=== PATIENT | male | born 1955 | race Caucasian/White ===

== ENCOUNTER 2018-11-27 16:15 | Emergency (ER) | payer BC ==
[~2018-11-27] VITALS: Ht 193 cm; Wt 157.2 kg
[2018-11-27 16:46] LABS: BASO # 0.1 x10^3/uL (0.0-0.2); BASO % 1 % (0-3); EOS # 0.2 x10^3/uL (0.0-0.7); EOS % 3 % (0-3); HEMOGLOBIN 14.7 g/dL (13.0-17.5); LYMPH # 2.5 x10^3/uL (1.0-4.8); LYMPH % 38 % (24-48); MEAN CORPUSCULAR HEMOGLOBIN 31 pg (25-35); MEAN CORPUSCULAR HGB CONC 34 g/dL (31-37); MEAN CORPUSCULAR VOLUME 93 fL (79-100); MONO # 0.7 x10^3/uL (0.0-1.1); MONO % 10 % (0-9); NEUT # 3.1 x10^3uL (1.8-7.7); NEUT % 47 % (31-73); PLATELET COUNT 233 x10^3/uL (140-400); RED BLOOD COUNT 4.73 x10^6/uL (4.30-5.70); RED CELL DISTRIBUTION WIDTH 13.4 % (11.5-14.5); WHITE BLOOD COUNT 6.4 x10^3/uL (4.0-11.0)
[2018-11-27 16:55] LABS: CALCIUM 9.8 mg/dL (8.5-10.1); CREATININE 1.1 mg/dL (0.7-1.3); GFR 67.8; POTASSIUM 4.1 mmol/L (3.5-5.1)
[2018-11-27 17:02] LABS: ALBUMIN 4.2 g/dL (3.4-5.0); ALBUMIN/GLOBULIN RATIO 1.1 (1.0-1.7); MAGNESIUM 2.2 mg/dL (1.8-2.4); TOTAL BILIRUBIN 0.9 mg/dL (0.2-1.0)
--- NOTE | 2018-11-27 17:02 | RAD ---
CT HEAD WO CONTRAST Indication: near-syncope NO PREV Exposure: One or more of the following individualized dose reduction techniques were utilized for this examination: 1. Automated exposure control 2. Adjustment of the mA and/or kV according to patient size 3. Use of iterative reconstruction technique. Technique: Standard imaging without intravenous contrast. Posterior fossa is unremarkable. No evidence of acute intracranial hemorrhage, mass effect, midline shift or abnormal extra-axial fluid collection. Ventricles and sulci are symmetric. Voss-white matter distinction is intact. Orbits appear symmetric. No large scalp swelling region. Partially visualized sinuses are clear. No evidence of acute skull abnormality. Intracranial arterial calcifications. IMPRESSION: No evidence of acute intracranial hemorrhage or mass effect. Electronically signed by: Enmanuel Pandya MD (11/27/2018 4:59 PM) [facility]
--- NOTE | 2018-11-27 17:24 | RAD ---
CHEST PA LATERAL Technique: PA and lateral views of the chest were obtained. Clinical History: NEAR SYNCOPE Comparison: None. Findings: The heart and pulmonary vasculature appear within normal limits. The lungs are clear. The pleural margins are clear. Impression: No acute chest process is seen. Electronically signed by: Kris Rinaldi III, MD (11/27/2018 5:21 PM) [facility]
--- NOTE | 2018-11-27 17:46 | PHYS DOC ---
Past Medical History Past Medical History: GERD, Hypertension, Other Additional Past Medical Histor: "small" AAA Past Surgical History: Other Additional Past Surgical Histo: L rotator cuff Alcohol Use: None Drug Use: None Adult General Chief Complaint Chief Complaint: NEURO SYMPTOMS/DEFICITS [facility] Patient is a 63 year old male who presents with complaining of balance problem and headache. Patient complaining of sudden onset of occipital headache at 1300 while he was working outside with dizziness and problem with his balance and tending to the right side that last about 30 minutes and resolved spontaneously. Patient states he was able to finish his work but is still feeling pressure headache in the occipital area and rated his pain as a mild pain. Patient denies focal neuro deficit, fever and chills, chest pain, dehydration, history of the same problem. Review of Systems Review of Systems Constitutional: Denies fever or chills [] Eyes: Denies change in visual acuity, redness, or eye pain [] HENT: Denies nasal congestion or sore throat [] Respiratory: Denies cough or shortness of breath [] Cardiovascular: No additional information not addressed in HPI [] GI: Denies abdominal pain, nausea, vomiting, bloody stools or diarrhea [] : Denies dysuria or hematuria [] Musculoskeletal: Denies back pain or joint pain [] Integument: Denies rash or skin lesions [] Neurologic: Reports headache, denies focal weakness or sensory changes [] Endocrine: Denies polyuria or polydipsia [] All other systems were reviewed and found to be within normal limits, except as documented in this note. Allergies Allergies Allergies Coded Allergies Type Severity Reaction Last Updated Verified No Known Drug Allergies 11/27/18 No Physical Exam Physical Exam Constitutional: Well developed, well nourished, no acute distress, non-toxic appearance. [] HENT: Normocephalic, atraumatic, bilateral external ears normal, oropharynx moist, no oral exudates, nose normal. [] Eyes: PERRLA, EOMI, conjunctiva normal, no discharge. [] Neck: Normal range of motion, no tenderness, supple, no stridor. [] Cardiovascular:Heart rate regular rhythm, no murmur [] Lungs & Thorax: Bilateral breath sounds clear to auscultation [] Abdomen: Bowel sounds normal, soft, no tenderness, no masses, no pulsatile masses. [] Skin: Warm, dry, no erythema, no rash. [] Back: No tenderness, no CVA tenderness. [] Extremities: No tenderness, no cyanosis, no clubbing, ROM intact, no edema. [] Neurologic: Alert and oriented X 3, normal motor function, normal sensory function, no focal deficits noted. [] Psychologic: Affect normal, judgement normal, mood normal. [] Current Patient Data Vital Signs Vital Signs Date Time Temp Pulse Resp B/P (MAP) Pulse Ox O2 Delivery O2 Flow Rate FiO2 11/27/18 16:20 98.8 66 18 170/81 (110) 99 Room Air 98.8 Lab Values Laboratory Tests Test 11/27/18 16:31 11/27/18 16:34 Glucose (Fingerstick) 87 mg/dL (70-99) White Blood Count 6.4 x10^3/uL (4.0-11.0) Red Blood Count 4.73 x10^6/uL (4.30-5.70) Hemoglobin 14.7 g/dL (13.0-17.5) Hematocrit 44.0 % (39.0-53.0) Mean Corpuscular Volume 93 fL (79-100) Mean Corpuscular Hemoglobin 31 pg (25-35) Mean Corpuscular Hemoglobin Concent 34 g/dL (31-37) Red Cell Distribution Width 13.4 % (11.5-14.5) Platelet Count 233 x10^3/uL (140-400) Neutrophils (%) (Auto) 47 % (31-73) Lymphocytes (%) (Auto) 38 % (24-48) Monocytes (%) (Auto) 10 % (0-9) H Eosinophils (%) (Auto) 3 % (0-3) Basophils (%) (Auto) 1 % (0-3) Neutrophils # (Auto) 3.1 x10^3uL (1.8-7.7) Lymphocytes # (Auto) 2.5 x10^3/uL (1.0-4.8) Monocytes # (Auto) 0.7 x10^3/uL (0.0-1.1) Eosinophils # (Auto) 0.2 x10^3/uL (0.0-0.7) Basophils # (Auto) 0.1 x10^3/uL (0.0-0.2) Sodium Level 136 mmol/L (136-145) Potassium Level 4.1 mmol/L (3.5-5.1) Chloride Level 100 mmol/L (98-107) Carbon Dioxide Level 30 mmol/L (21-32) Anion Gap 6 (6-14) Blood Urea Nitrogen 17 mg/dL (8-26) Creatinine 1.1 mg/dL (0.7-1.3) Estimated GFR (Cockcroft-Gault) 67.8 BUN/Creatinine Ratio 15 (6-20) Glucose Level 108 mg/dL (70-99) H Calcium Level 9.8 mg/dL (8.5-10.1) Magnesium Level 2.2 mg/dL (1.8-2.4) Total Bilirubin 0.9 mg/dL (0.2-1.0) Aspartate Amino Transferase (AST) 26 U/L (15-37) Alanine Aminotransferase (ALT) 39 U/L (16-63) Alkaline Phosphatase 71 U/L (46-116) Creatine Kinase 104 U/L (39-308) Troponin I Quantitative < 0.017 ng/mL (0.000-0.055) PT-Utv-X-Type Natriuretic Peptide 100 pg/mL (0-124) Total Protein 8.0 g/dL (6.4-8.2) Albumin 4.2 g/dL (3.4-5.0) Albumin/Globulin Ratio 1.1 (1.0-1.7) Laboratory Tests 11/27/18 16:34 Laboratory Tests 11/27/18 16:34 EKG EKG EKG Interpreted by me. EKG at 1633 showed normal sinus rhythm at rate of 61, normal MD and QT intervals, no acute ST-T wave abnormalities. Radiology/Procedures Radiology/Procedures [facility] [address] [place], [place] [id number] IMAGING REPORT Signed PATIENT: ENMANUEL POSADA ACCOUNT: [id number] : 1955 LOCATION: ER AGE: 63 SEX: M EXAM STATUS: REG ER ORD. PHYSICIAN: RIGO ROBINS MD REASON: near-syncope PROCEDURE: CHEST PA & LATERAL CHEST PA LATERAL Technique: PA and lateral views of the chest were obtained. Clinical History: NEAR SYNCOPE Comparison: None. Findings: The heart and pulmonary vasculature appear within normal limits. The lungs are clear. The pleural margins are clear. Impression: No acute chest process is seen. Electronically signed by: Sabina Lin III, MD (11/27/2018 5:21 PM) [facility] DICTATED and SIGNED BY: SABINA LIN III, MD DATE: 11/27/18 1721 [facility] [address] [place] [address] IMAGING REPORT Signed PATIENT: ENMANUEL POSADA ACCOUNT: [id number] : 1955 LOCATION: ER AGE: 63 SEX: M EXAM STATUS: PRE ER ORD. PHYSICIAN: RIGO ROBINS MD REASON: near-syncope PROCEDURE: CT HEAD WO CONTRAST CT HEAD WO CONTRAST Indication: near-syncope NO PREV Exposure: One or more of the following individualized dose reduction techniques were utilized for this examination: 1. Automated exposure control 2. Adjustment of the mA and/or kV according to patient size 3. Use of iterative reconstruction technique. Technique: Standard imaging without intravenous contrast. Posterior fossa is unremarkable. No evidence of acute intracranial hemorrhage, mass effect, midline shift or abnormal extra-axial fluid collection. Ventricles and sulci are symmetric. Voss-white matter distinction is intact. Orbits appear symmetric. No large scalp swelling region. Partially visualized sinuses are clear. No evidence of acute skull abnormality. Intracranial arterial calcifications. IMPRESSION: No evidence of acute intracranial hemorrhage or mass effect. Electronically signed by: Enmanuel Pandya MD (11/27/2018 4:59 PM) [facility] DICTATED and SIGNED BY: ENMANUEL PANDYA MD DATE: 11/27/18 1474 Course & Med Decision Making Course & Med Decision Making Pertinent Labs and Imaging studies reviewed. (See chart for details) Evaluation of patient in ER showed 63-year-old male patient with complaining of one of problem with his balance that resolved after 30 minutes and total headache. Patient had unremarkable neuro exam and labs and CT head and chest x- ray and EKG. Patient updated without problem. Patient felt dizziness during CT with change of the position of his head. Plan discharge patient home to diagnose of benign vertigo. Dragon Disclaimer Dragon Disclaimer This electronic medical record was generated, in whole or in part, using a voice recognition dictation system. Departure Departure Impression: Primary Impression: Balance problem Additional Impression: Dizziness Disposition: HOME, SELF-CARE (At 1748) Condition: IMPROVED Referrals: VALE MORROW DO (PCP) Patient Instructions: Benign Positional Vertigo Additional Instructions: Drink plenty liquid Follow up with your physician in 3-4 days Return to ER if not getting better Scripts Meclizine Hcl (MECLIZINE HCL) 25 Mg Tablet 1 TAB PO TID for dizziness, #20 TAB Prov: RIGO ROBINS MD 11/27/18 Problem Qualifiers RIGO ROBINS MD Nov 27, 2018 17:46
[2018-11-27] MEDS ORDERED: MECL25TA3 PO (17:50)
[2018-11-27 18:00] VITALS: BP 152/78
--- NOTE | 2018-11-28 07:30 | EKG ---
[facility] [address] [place] [address] Test Date: 2018-11-27 Test Time: 16:33:58 Pat Name: THAO POSADA Department: Room: Gender: M Communications Intern: : 1955 Requested By: RIGO ROBINS Order Number: [id number] Reading MD: Bo Natarajan Measurements Intervals [place] Rate: 61 P: 29 [place]: 172 QRS: 31 QRSD: 102 T: 16 QT: 406 QTc: 414 Interpretive Statements SINUS RHYTHM NORMAL ECG No previous ECG available for comparison Electronically Signed On 12-03-2018 11:56:32 CDT by Bo Natarajan
== END 2018-11-27 18:10 | disposition home or self-care (01) ==
LOC: ER 16:15
DX: R42 Dizziness and giddiness (principal); R51 Headache; R26.89 Other abnormalities of gait and mobility; R55 Syncope and collapse; K21.9 Gastro-esophageal reflux disease without esophagitis; I10 Essential (primary) hypertension
CPT/HCPCS: 36415; 70450; 71046; 80053; 82550; 82962; 83735; 83880; 84484; 85025; 93005; 99285-25